=== PATIENT | female | born 1940 ===

== ENCOUNTER 2018-10-04 21:10 | Inpatient (IN) ==
[2018-10-04] MEDS ORDERED: PNEUMOCOCCAL VACCINE (13 VALENT) 0.5 ML SYRINGE IM ONE (22:55)
[2018-10-04] MEDS ORDERED: DEXTROSE 50% 25 GM/50 ML VIAL IV PRN (23:57)
[2018-10-04] MEDS ORDERED: GLUCAGON 1 MG VIAL IM PRN (23:57)
[2018-10-05] MEDS ORDERED: VANCOMYCIN INJ 1,000 MG in SODIUM CHLORIDE 0.9% 250 ML IV ONE
[2018-10-05] MEDS ORDERED: ONDANSETRON 4 MG/2 ML VIAL IV PRN (00:05)
[2018-10-05] MEDS ORDERED: ACETAMINOPHEN 325 MG TABLET PO PRN (00:05)
[2018-10-05] MEDS ORDERED: DOCUSATE SODIUM 100 MG CAPSULE PO PRN (00:05)
[2018-10-05] MEDS: METOPROLOL SUCCINATE XL 50 MG TABLET PO SCH ×2 (00:34→20:27)
[2018-10-05] MEDS: SODIUM CHLORIDE 0.9% 1,000 ML IV SCH ×2 (00:44→23:35)
[2018-10-05] MEDS: CEFEPIME 2,000 MG in SYRINGE 1 EACH IV SCH ×4 (00:46→23:28)
[2018-10-05] MEDS: ENOXAPARIN 40 MG/0.4 ML SYRINGE SUBCUT SCH ×2 (01:01→23:45)
[2018-10-05 05:21] LABS: Basophils % 0.4 % (0.0-0.8); Eosinophils # 0.2 10*3/uL (0.0-0.87); Eosinophils % 2.3 % (0.00-10.9); Hematocrit 32.4 VOL% (35.7-47.0); Hemoglobin 10.9 GM/DL (12.0-16.0); Immature Granulocytes % 0.3 %; Immature Granulocytes Absolute 0.02 #; Lymphocytes # 0.9 10*3/uL (1.4-4.0); Lymphocytes % 13.1 % (21.3-54.2); Mean Corpuscular HGB Conc 33.6 GM/DL (32-36); Mean Corpuscular Volume 89.3 FL (87-102); Monocytes % 9.7 % (1.7-12.7); Neutrophils % 74.2 % (38.7-73.9); Platelet Count 314 T/CUMM (130-400); Red Blood Count 3.63 MC/CUMM (3.8-5.5); Red Cell Distribution Width 12.2 % (9.3-17.3); White Blood Count 7.1 T/CUMM (4-12)
[2018-10-05 05:46] LABS: Albumin 2.6 G/DL (3.4-5.0); Bilirubin,Total 0.5 MG/DL (0.2-1.0); Calcium 8.5 MG/DL (8.5-10.1); Total Protein 7.7 G/DL (6.4-8.3)
[2018-10-05] MEDS: INSULIN LISPRO 100 UNIT/ML SUBCUT SCH ×7 (08:08→20:30)
[2018-10-05] MEDS: KETOROLAC 15 MG/1 ML VIAL IV PRN ×2 (09:01→19:21)
[2018-10-05] MEDS: LISINOPRIL 20 MG TABLET PO SCH (09:01)
[2018-10-05] MEDS: MULTIVITAMIN (CENTRUM) TABLET PO SCH (09:03)
[2018-10-05] MEDS ORDERED: LIDOCAINE 1% 20 ML VIAL ONE (10:28)
[2018-10-05] MEDS ORDERED: MIDAZOLAM 2 MG/2 ML VIAL ONE (11:06)
[2018-10-05] MEDS ORDERED: fentaNYL 100 MCG/2 ML VIAL ONE (11:06)
[2018-10-05] MEDS: VANCOMYCIN INJ 1,000 MG in SODIUM CHLORIDE 0.9% 250 ML IV SCH ×2 (12:13→23:30)
[2018-10-05] MEDS: INSULIN GLARGINE 100 UNIT/ML SUBCUT SCH (20:31)
[2018-10-06 05:05] LABS: Basophils % 0.4 % (0.0-0.8); Eosinophils # 0.3 10*3/uL (0.0-0.87); Eosinophils % 4.7 % (0.00-10.9); Hematocrit 29.5 VOL% (35.7-47.0); Hemoglobin 9.9 GM/DL (12.0-16.0); Immature Granulocytes % 0.3 %; Immature Granulocytes Absolute 0.02 #; Lymphocytes % 13.7 % (21.3-54.2); Mean Corpuscular HGB Conc 33.6 GM/DL (32-36); Mean Corpuscular Volume 91.3 FL (87-102); Mean Platelet Volume 9.3 FL (9.6-12.0); Neutrophils % 69.9 % (38.7-73.9); Platelet Count 284 T/CUMM (130-400); Red Blood Count 3.23 MC/CUMM (3.8-5.5); Red Cell Distribution Width 12.4 % (9.3-17.3); White Blood Count 7.3 T/CUMM (4-12)
[2018-10-06 05:28] LABS: Calcium 8.3 MG/DL (8.5-10.1); Osmolality,Calculated 278.7 MOS/KG (273-304)
[2018-10-06] MEDS: INSULIN LISPRO 100 UNIT/ML SUBCUT SCH ×7 (08:49→22:07)
[2018-10-06] MEDS: LISINOPRIL 20 MG TABLET PO SCH (08:50)
[2018-10-06] MEDS: MULTIVITAMIN (CENTRUM) TABLET PO SCH (08:50)
[2018-10-06] MEDS: CEFEPIME 2,000 MG in SYRINGE 1 EACH IV SCH ×3 (08:53→23:50)
[2018-10-06] MEDS: VANCOMYCIN INJ 1,000 MG in SODIUM CHLORIDE 0.9% 250 ML IV SCH ×2 (12:34→23:50)
[2018-10-06] MEDS: METOPROLOL SUCCINATE XL 50 MG TABLET PO SCH (21:00)
[2018-10-06] MEDS: KETOROLAC 15 MG/1 ML VIAL IV PRN (22:02)
[2018-10-06] MEDS: INSULIN GLARGINE 100 UNIT/ML SUBCUT SCH (22:07)
[2018-10-07 05:45] LABS: Basophils % 0.5 % (0.0-0.8); Eosinophils # 0.4 10*3/uL (0.0-0.87); Eosinophils % 5.8 % (0.00-10.9); Hematocrit 28.6 VOL% (35.7-47.0); Hemoglobin 9.6 GM/DL (12.0-16.0); Immature Granulocytes % 0.5 %; Immature Granulocytes Absolute 0.04 #; Lymphocytes % 13.9 % (21.3-54.2); Mean Corpuscular HGB Conc 33.6 GM/DL (32-36); Mean Corpuscular Volume 91.1 FL (87-102); Monocytes % 10.7 % (1.7-12.7); Neutrophils % 68.6 % (38.7-73.9); Platelet Count 278 T/CUMM (130-400); Red Blood Count 3.14 MC/CUMM (3.8-5.5); Red Cell Distribution Width 12.5 % (9.3-17.3); White Blood Count 7.5 T/CUMM (4-12)
[2018-10-07 06:16] LABS: Calcium 8.4 MG/DL (8.5-10.1); Osmolality,Calculated 278.8 MOS/KG (273-304)
[2018-10-07] MEDS: INSULIN LISPRO 100 UNIT/ML SUBCUT SCH ×7 (08:16→21:14)
[2018-10-07] MEDS: CEFEPIME 2,000 MG in SYRINGE 1 EACH IV SCH ×3 (08:17→23:35)
[2018-10-07] MEDS: LISINOPRIL 20 MG TABLET PO SCH (08:22)
[2018-10-07] MEDS ORDERED: LIDOCAINE 1% 20 ML VIAL ONE (11:55)
[2018-10-07] MEDS ORDERED: LACTATED RINGERS 1,000 ML IV SCH (13:00)
[2018-10-07] MEDS ORDERED: MIDAZOLAM 2 MG/2 ML VIAL ONE (13:31)
[2018-10-07] MEDS ORDERED: fentaNYL 100 MCG/2 ML VIAL ONE (13:31)
[2018-10-07] MEDS ORDERED: hydrALAZINE 20 MG/1 ML VIAL ONE (13:31)
[2018-10-07] MEDS: VANCOMYCIN INJ 1,000 MG in SODIUM CHLORIDE 0.9% 250 ML IV SCH (15:17)
[2018-10-07] MEDS: amLODIPine 5 MG TABLET PO SCH (15:18)
[2018-10-07] MEDS: MULTIVITAMIN (CENTRUM) TABLET PO SCH (15:18)
[2018-10-07] MEDS: METOPROLOL SUCCINATE XL 50 MG TABLET PO SCH (21:12)
[2018-10-07] MEDS: INSULIN GLARGINE 100 UNIT/ML SUBCUT SCH (21:13)
[2018-10-08] MEDS: VANCOMYCIN INJ 1,000 MG in SODIUM CHLORIDE 0.9% 250 ML IV SCH (03:25)
[2018-10-08 05:14] LABS: Basophils % 0.4 % (0.0-0.8); Eosinophils # 0.4 10*3/uL (0.0-0.87); Eosinophils % 5.4 % (0.00-10.9); Hematocrit 30.1 VOL% (35.7-47.0); Immature Granulocytes % 0.4 %; Immature Granulocytes Absolute 0.03 #; Lymphocytes # 1.3 10*3/uL (1.4-4.0); Mean Corpuscular HGB Conc 33.2 GM/DL (32-36); Mean Corpuscular Volume 90.9 FL (87-102); Mean Platelet Volume 9.1 FL (9.6-12.0); Monocytes % 11.1 % (1.7-12.7); Neutrophils % 66.7 % (38.7-73.9); Platelet Count 317 T/CUMM (130-400); Red Blood Count 3.31 MC/CUMM (3.8-5.5); Red Cell Distribution Width 12.4 % (9.3-17.3); White Blood Count 7.9 T/CUMM (4-12)
[2018-10-08 05:27] LABS: Calcium 8.6 MG/DL (8.5-10.1); Osmolality,Calculated 275.7 MOS/KG (273-304)
[2018-10-08] MEDS: INSULIN LISPRO 100 UNIT/ML SUBCUT SCH ×4 (07:40→11:08)
[2018-10-08] MEDS: MULTIVITAMIN (CENTRUM) TABLET PO SCH (08:26)
[2018-10-08] MEDS: LISINOPRIL 20 MG TABLET PO SCH (08:26)
[2018-10-08] MEDS: amLODIPine 5 MG TABLET PO SCH (08:27)
[2018-10-08] MEDS: CEFEPIME 2,000 MG in SYRINGE 1 EACH IV SCH (08:28)
[2018-10-08 11:04] VITALS: BP 142/52
[2018-10-08] MEDS ORDERED: SODIUM HYPOCHLORITE 0.25% IRRIG 473 ML BOTTLE TOP SCH (11:11)
[2018-10-09] MEDS ORDERED: CHLORHEXIDINE 4% SOLN 118 ML BOTTLE TOP SCH (09:00)
[2018-10-09] MEDS ORDERED: SODIUM HYPOCHLORITE 0.25% IRRIG 473 ML BOTTLE TOP SCH (09:00)
[2018-10-11] MEDS ORDERED: ERGOCALCIFEROL 50,000 UNIT CAPSULE PO SCH (09:00)
== END 2018-10-08 11:37 | disposition home health service (06) | DRG 240 ==
LOC: N.3E 22:22 → SUATTDRO 22:41
PROVIDERS: ADMIT Internal Medicine; ATTEND Family Medicine